=== PATIENT | female | born 1980 | race Caucasian/White ===

== ENCOUNTER → 2016-06-19 | Outpatient (CLI) | payer OTHER ==
[~2016-06-19] MED LIST: NO MEDICATIONS
--- NOTE | ~2016-06-19 | MR2 ---
[facility] A Service of [facility] & [facility] RADIOLOGY TEXT RESULTS PATIENT: ABDIFATAH JEFFERSON LOCATION: [facility] : 84 UNIT #: [id number] AGE: [address]: Mercy Damon MD SEX: F ORDER DR: [id number] [place] [id number] O MR#: [id number] Acc #: [id number] NAME: ABDIFATAH JEFFERSON : 1980 SEX: F STUDY DATE/TIME: 06/19/2016 8:41 UNIT: [facility] ROOM: STUDY DESCRIPTION: MR Abdomen WWo Cont Attending Physician: Mercy Damon M.D. Referring Physician: Mercy Damon M.D. Ordering Physician: Mercy Damon M.D. Primary Care Physician: Antonio Nix M.D. MRI CENTER REPORT This report is preliminary unless electronic signature is present. EXAM MR abdomen. INDICATION Pancreatic mass. Liver mass. Restaging. TECHNIQUE Multiplanar MRI of the abdomen with and without IV contrast (20 mL MultiHance IV contrast). COMPARISON MRI abdomen dated 01/17/2016. FINDINGS The pancreas enhances normally. There is a small lesion in or adjacent to the pancreatic tail measuring up to 1.5 cm. This is unchanged from the MRI of 01/17/2016 and in my opinion unchanged from the CT scan from 2013. The signal characteristics of the mass follow the adjacent pancreatic parenchyma and I believe this represents a small splenule. There is a similar-appearing splenule slightly more cephalad near the splenic hilum. There are 5 separate lesions in the liver. These are unchanged from prior studies. 4 of the lesions have imaging appearance of benign hemangiomas. A lesion in the posterior right hepatic lobe (segment 7) is indeterminate. This measures up to 1.7 cm. It has hyperintense enhancement on the early arterial phase image and fades to near signal intensity of the background liver on the more delayed images. This is most consistent with an area of focal nodular hyperplasia. Gallbladder is not distended. The pancreas, spleen, adrenal glands, and kidneys are within normal limits. The bowel is not dilated. IMPRESSION 1. 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 [facility] A Service of [facility] & [facility] RADIOLOGY TEXT RESULTS PATIENT: ABDIFATAH JEFFERSON LOCATION: [facility] : 84 UNIT #: [id number] AGE: [address]: Mercy Damon MD SEX: F ORDER DR: that mimic the adjacent spleen. I believe this represents a small splenule. In retrospect, I do not believe this lesion has significantly changed from the 2014 comparison and is consistent with a benign lesion. As a precaution, additional followup study in 1 year can be performed to provide further reassurance. 2. 5 lesions in the liver. Four a benign hemangiomas. The 5th is probably an area of focal nodular hyperplasia. 3. No new findings. Dictated by... mOar Parham M.D. THIS IS AN ELECTRONICALLY VERIFIED REPORT Omar Parham M.D. at 06/23/2016 9:42 AM GERSON/celi TD: 06/19/2016 16:47 JOB #: [id number] MRI CENTER REPORT Page 1 of 1
== END | disposition home or self-care (01) ==
LOC: SMRI 08:27
DX: K86.89 Other specified diseases of pancreas (principal)
CPT/HCPCS: 74183; A9581